=== PATIENT | male | born 1995 | race African-American/Black ===

== ENCOUNTER 2018-07-31 11:55 | Emergency (ER) | payer OTHER ==
--- NOTE | 2018-07-31 12:27 | PDOC ---
Rapid Medical Evaluation Time Seen by Provider: 07/31/18 12:25 Medical Evaluation: 07/31/18 12:25 I performed a brief in-person evaluation of this patient. Chief complaint is: Left thumb pain, "jammed" while playing basketball. Pertinent physical exam findings include: ROM limited secondary to pain. I have ordered the following: Xray. Patient will proceed to the ED for further evaluation. Discharge Disposition - Diagnosis Injury of left thumb Qualifiers: Encounter type: initial encounter Qualified Code(s): S69.92XA - Unspecified injury of left wrist, hand and finger(s), initial encounter - Referrals - Patient Instructions - Post Discharge Activity
[2018-07-31 12:30] VITALS: BP 124/80; PULSE 71; TEMP 98.6; BMI 20.3
[2018-07-31] MEDS ORDERED: IBUPROFEN 600 MG TABLET (FP) PO ONE ×2 (13:30→13:32)
--- NOTE | 2018-07-31 14:02 | PDOC ---
History of Present Illness - General Chief Complaint: Injury Stated Complaint: LT THUMB INJURY Time Seen by Provider: 07/31/18 12:25 History Source: Patient Exam Limitations: No Limitations Past History - Past Medical History Allergies/Adverse Reactions: Allergies Allergy/AdvReac Type Severity Reaction Status Date / Time No Known Allergies Allergy Verified 07/31/18 12:30 Home Medications: Ambulatory Orders NK [No Known Home Medication] 07/31/18 - Suicide/Smoking/Psychosocial Hx Smoking History: Never smoked Have you smoked in the past 12 months: No Information on smoking cessation initiated: No Hx Alcohol Use: No Drug/Substance Use Hx: No *Physical Exam - Vital Signs Last Vital Signs Temp Pulse Resp BP Pulse Ox 98.6 F 71 18 124/80 99 07/31/18 12:28 07/31/18 12:28 07/31/18 12:28 07/31/18 12:28 07/31/18 12:28 - Physical Exam General Appearance: No: Apparent Distress Musculoskeletal: positive: Other (+swelling and TTP along L thumb IP joint, + small ecchymosis, +pain with flexion/extension of L IP joint, no pain or deformity along L MCP joint, able to flex and extend along L MCP joint) Neurologic: positive: Alert, Normal Mood/Affect Moderate Sedation - Procedure Monitoring Vital Signs: Procedure Monitoring Vital Signs Temperature 98.6 F 07/31/18 12:28 Pulse Rate 71 07/31/18 12:28 Respiratory Rate 18 07/31/18 12:28 Blood Pressure 124/80 07/31/18 12:28 O2 Sat by Pulse Oximetry (%) 99 07/31/18 12:28 ED Treatment Course - Medications Given in the ED: ED Medications Discontinued Medications Generic Name Dose Route Start Last Admin Trade Name Freq PRN Reason Stop Dose Admin Ibuprofen 600 mg 07/31/18 13:30 07/31/18 13:33 Motrin - PO 07/31/18 13:31 600 mg ONCE ONE Administration Medical Decision Making - Medical Decision Making 23 y/o M with no sig pmh presents with L thumb injury after playing basketball yesterday. Was catching ball and L thumb hyperextended Xray shows nondisplaced L proximal phalanx fracture L thumb placed in finger splint Will refer to ortho 07/31/18 13:57 *DC/Admit/Observation/Transfer Diagnosis at time of Disposition: Fracture of thumb, proximal phalanx, left, closed Qualifiers: Encounter type: initial encounter Fracture alignment: nondisplaced Qualified Code(s): S62.515A - Nondisplaced fracture of proximal phalanx of left thumb, initial encounter for closed fracture - Discharge Dispostion Disposition: HOME Condition at time of disposition: Stable Decision to Admit order: No - Referrals Referrals: Ranjit Bond MD [Primary Care Provider] - 3 days Alexis Latham MD [Staff Physician] - Call tomorrow - Patient Instructions Printed Discharge Instructions: DI for Finger Fracture Additional Instructions: Thank you for choosing [facility]. It was a pleasure taking care of you. You were found to have left thumb fracture which was splinted You may take Motrin 600 mg every 4 hours by mouth as needed for mild to moderate pain. Take Motrin with food. Apply ice to help decrease swelling for the first 48 hours.Then switch to warm compresses You were referred to orthopedic - please call for follow-up. Return to the Emergency Department if your symptoms worsen or persist or have other concerning symptoms. - Post Discharge Activity
== END 2018-07-31 14:09 | disposition home or self-care (01) ==
LOC: JERFT 11:55
PROC: 2W3DX1Z Immobilization of Left Lower Arm using Splint (ICD-10-PCS; principal; 2018-07-31)
DX: S62.515A Nondisplaced fracture of proximal phalanx of left thumb, initial encounter for closed fracture (principal); X58.XXXA Exposure to other specified factors, initial encounter; Y93.67 Activity, basketball; Y92.310 Basketball court as the place of occurrence of the external cause
CPT/HCPCS: 29125; 73140-TC-LT-FY; 99281-25